=== PATIENT | male | born 1965 | race Caucasian/White ===

== ENCOUNTER → 2016-10-05 | Outpatient (CLI) | payer OTHER ==
[~2016-10-05] MED LIST: ADVIL,NUPRIN,M200 MG PO; ADVIL200 MG PO; AMOX TR-K250 MG/5 M PO; IBUPROFEN200 M1 PO; OXYCODONE H5 MG/5 ML PO; OXYCODONE HCL10 MG PO; VICODIN 5-3001 EACH PO
== END | disposition home or self-care (01) ==
LOC: CDC 11:19
DX: C10.9 Malignant neoplasm of oropharynx, unspecified (principal)
CPT/HCPCS: 93000

== ENCOUNTER 2016-10-06 21:01 | Inpatient (IN) | payer OTHER ==
[~2016-10-06] VITALS: Ht 175.3 cm; Wt 55.7 kg
[~2016-10-06 21:01] MED LIST changes: -ADVIL,NUPRIN,M200 MG PO; -AMOX TR-K250 MG/5 M PO; -OXYCODONE HCL10 MG PO
[2016-10-06 23:44] LABS: EOSINOPHIL (%) 0.2 % (0-5); HEMATOCRIT 40.1 % (38.0-50.0); IMMATURE GRANULOCYTE (%) 0.7 % (0.0-0.7); INSTRUMENT ABS NEUTROPHIL CT 4.9 K/uL; LYMPHOCYTE COUNT 0.4 K/uL (1.0-2.8); MCH 34.2 PG (29.0-34.0); MCHC 36.7 G/DL (30.0-36.0); MCV 93.3 FL (86-99); MEAN PLAT.VOLUME 9.5 uM^3 (9.0-12.4); MONOCYTE (%) 8.1 % (3-12); MONOCYTE COUNT 0.5 K/uL (0-0.8); NEUTROPHIL (%) 83.5 % (45-76); NEUTROPHIL COUNT 4.9 K/uL (1.8-6.4); PLATELET COUNT 224 K/uL (156-360); RBC DIS.WIDTH-CV 13.2 % (11.8-14.6); RBC DIS.WIDTH-SD 45.2 % (39-53); WHITE BLOOD COUNT 5.8 K/uL (4.1-10.2)
[2016-10-06 23:54] LABS: CHLORIDE 97 mEq/L (99-109)
[2016-10-06 23:55] LABS: POTASSIUM 4.2 mEq/L (3.7-5.4)
[2016-10-06 23:56] LABS: INTER. NORMALIZED RATIO 0.9; PTT 28.1 (25-32)
[2016-10-06 23:57] LABS: GLUCOSE 84 mg/dL (70-99)
[2016-10-06 23:58] LABS: ANION GAP 16 MEQ/L (2-14)
[2016-10-06 23:59] LABS: TOTAL BILIRUBIN 0.2 mg/dL (0.0-1.0)
[2016-10-07] LABS: ALKALINE PHOSPHATASE 62 IU/L (3-129); PROTHROMBIN TIME 9.4 (9.2-11.2); SERUM ETHYL ALCOHOL 296 mg/dL
[2016-10-07 00:01] LABS: GFR ESTIMATE (CALCULATED) > 59 mL/min/
[2016-10-07 00:02] LABS: UREA NITROGEN (BUN) 5 mg/dL (9-23)
[2016-10-07 00:04] LABS: LIPASE 23 U/L (1.0-51.0)
[2016-10-07 00:06] LABS: SODIUM 137 mEq/L (136-147)
[2016-10-07] MEDS ORDERED: ADVIL,NUPRIN,M200 MG PO (01:38)
[2016-10-07] MEDS ORDERED: OXYCODONE HCL10 MG PO (01:38)
[2016-10-07 07:46] VITALS: BP 107/69
[2016-10-07 11:14] VITALS: BP 119/71
[2016-10-07 16:20] VITALS: BP 121/76
[2016-10-07 23:43] VITALS: BP 157/83
[2016-10-08 05:41] LABS: ANION GAP 8 MEQ/L (2-14); CHLORIDE 93 MEQ/L (99-109); GFR ESTIMATE (CALCULATED) > 59 mL/min/; GLUCOSE 100 mg/dL (70-99); POTASSIUM 3.9 MEQ/L (3.7-5.4); SAMPLE HEMOLYSIS CHECK 0; SAMPLE ICTERIC CHECK 0; SAMPLE LIPEMIA CHECK 0; SODIUM 132 MEQ/L (136-147); UREA NITROGEN (BUN) 7 mg/dL (9-23)
[2016-10-08 06:20] LABS: EOSINOPHIL (%) 0.4 % (0-5); HEMATOCRIT 34.8 % (38.0-50.0); IMMATURE GRANULOCYTE (%) 0.6 % (0.0-0.7); INSTRUMENT ABS NEUTROPHIL CT 5.7 K/uL; LYMPHOCYTE COUNT 0.4 K/uL (1.0-2.8); MCH 33.2 PG (29.0-34.0); MCHC 35.3 G/DL (30.0-36.0); MCV 94.1 FL (86-99); MEAN PLAT.VOLUME 9.9 uM^3 (9.0-12.4); MONOCYTE (%) 9.9 % (3-12); MONOCYTE COUNT 0.7 K/uL (0-0.8); NEUTROPHIL (%) 83.6 % (45-76); NEUTROPHIL COUNT 5.7 K/uL (1.8-6.4); PLATELET COUNT 189 K/uL (156-360); RBC DIS.WIDTH-CV 13.3 % (11.8-14.6); RBC DIS.WIDTH-SD 45.6 % (39-53); WHITE BLOOD COUNT 6.9 K/uL (4.1-10.2)
[2016-10-08 08:19] VITALS: BP 144/81
[2016-10-08 18:03] VITALS: BP 136/78
[2016-10-08 23:43] VITALS: BP 139/80
[2016-10-09 05:55] LABS: ANION GAP 5 MEQ/L (2-14); CHLORIDE 94 MEQ/L (99-109); GFR ESTIMATE (CALCULATED) > 59 mL/min/; GLUCOSE 101 mg/dL (70-99); POTASSIUM 3.7 MEQ/L (3.7-5.4); SAMPLE HEMOLYSIS CHECK 0; SAMPLE ICTERIC CHECK 0; SAMPLE LIPEMIA CHECK 0; SODIUM 130 MEQ/L (136-147); UREA NITROGEN (BUN) 5 mg/dL (9-23)
[2016-10-09 08:19] VITALS: BP 131/82
[2016-10-09 16:11] VITALS: BP 159/92
[2016-10-09 19:26] VITALS: BP 139/83
[2016-10-10 00:04] VITALS: BP 159/83
[2016-10-10 06:23] VITALS: BP 143/86
[2016-10-10 08:59] LABS: HEMATOCRIT 39.3 % (38.0-50.0); MCH 33.1 PG (29.0-34.0); MCHC 34.9 G/DL (30.0-36.0); MCV 94.9 FL (86-99); MEAN PLAT.VOLUME 9.8 uM^3 (9.0-12.4); PLATELET COUNT 204 K/uL (156-360); RBC DIS.WIDTH-CV 13.2 % (11.8-14.6); RBC DIS.WIDTH-SD 46.1 % (39-53); RED BLOOD COUNT 4.14 M/uL (4.00-5.50); WHITE BLOOD COUNT 7.2 K/uL (4.1-10.2)
[2016-10-10 09:21] LABS: ANION GAP 10 MEQ/L (2-14); CHLORIDE 89 MEQ/L (99-109); GFR ESTIMATE (CALCULATED) > 59 mL/min/; GLUCOSE 119 mg/dL (70-99); POTASSIUM 3.4 MEQ/L (3.7-5.4); SAMPLE HEMOLYSIS CHECK 0; SAMPLE ICTERIC CHECK 0; SAMPLE LIPEMIA CHECK 0; SODIUM 129 MEQ/L (136-147); UREA NITROGEN (BUN) 7 mg/dL (9-23)
[2016-10-10] MEDS ORDERED: AMOX TR-K250 MG/5 M PO (16:20)
[2016-10-10 16:56] VITALS: BP 121/88
== END 2016-10-10 18:39 | disposition home health service (06) | DRG 158 ==
LOC: RME 21:01 → EME 21:01 → 3EAST 10-07 05:51 → EDOF 10-07 05:51 → 3EAST 10-07 07:35
PROVIDERS: Emergency Medicine; Hospitalist; Nurse Practitioner Adult Health; Physician Assistant
PROC: 0DH64UZ Insertion of Feeding Device into Stomach, Percutaneous Endoscopic Approach (ICD-10-PCS; principal; 2016-10-09)
DX: M27.2 Inflammatory conditions of jaws (principal); E44.0 Moderate protein-calorie malnutrition; Z68.1 Body mass index [BMI] 19.9 or less, adult; Z85.828 Personal history of other malignant neoplasm of skin; C78.02 Secondary malignant neoplasm of left lung; C44.42 Squamous cell carcinoma of skin of scalp and neck; Z92.3 Personal history of irradiation; K04.7 Periapical abscess without sinus; M89.8X8 Other specified disorders of bone, other site; F17.210 Nicotine dependence, cigarettes, uncomplicated; C79.51 Secondary malignant neoplasm of bone; G89.3 Neoplasm related pain (acute) (chronic); E86.0 Dehydration; R62.7 Adult failure to thrive; H66.92 Otitis media, unspecified, left ear; F10.229 Alcohol dependence with intoxication, unspecified
CPT/HCPCS: 36415; 70450; 70487; 70553; 71010; 80048; 80053; 81003; 83690; 83735; 85025; 85027; 85610; 85730; 87040; 93000; 99281; 99285; G0480; J0295; J0696; J1170; J1650; J1885; J2704; J3010; J3411; J3475; J7030; J7050; S0030

== ENCOUNTER 2017-07-27 08:25 | Inpatient (IN) | payer OTHER ==
[~2017-07-27] VITALS: Ht 175.3 cm; Wt 48.4 kg
[~2017-07-27 08:25] MED LIST changes: +ADVIL,NUPRIN,M200 MG PO; +AMOX TR-K250 MG/5 M PO; +EXTRA STRENGTH500 M1 PO; +OXYCODONE HCL10 MG PO
[2017-07-27 08:59] LABS: BASE EXCESS 9.1 mEq/L (-3 to +3); BICARBONATE 32.7 mEq/L (22-26); METHEMOGLOBIN 0.8 % (0-1.5); PCO2 40 mm Hg (35-45); PO2 70 mm Hg (80-100); SITE RR; pH 7.52 (7.35-7.45)
[2017-07-27 09:00] LABS: COMMENTS - BLOOD GASES A+C+; DEVICE NRBM; O2 FLOW 15 L/MIN; TOTAL RESP RATE 32 resp/min
[2017-07-27 09:27] LABS: BASOPHIL (%) 0.3 % (0-1); BASOPHIL COUNT 0.1 K/uL (0-0.1); EOSINOPHIL (%) 0 % (0-5); HEMATOCRIT 39.1 % (38.0-50.0); HEMOGLOBIN 13.2 G/DL (12.5-16.6); IMMATURE GRANULOCYTE (%) 0.6 % (0.0-0.7); LYMPHOCYTE (%) 0.3 % (15-42); LYMPHOCYTE COUNT 0.1 K/uL (1.0-2.8); MCH 30.3 PG (29.0-34.0); MCHC 33.8 G/DL (30.0-36.0); MCV 89.7 FL (86-99); MONOCYTE (%) 1.4 % (3-12); MONOCYTE COUNT 0.4 K/uL (0-0.8); NEUTROPHIL (%) 97.4 % (45-76); NEUTROPHIL COUNT 28.1 K/uL (1.8-6.4); PLATELET COUNT 416 K/uL (156-360); RBC DIS.WIDTH-CV 13.7 % (11.8-14.6); RED BLOOD COUNT 4.36 M/uL (4.00-5.50); WHITE BLOOD COUNT 28.9 K/uL (4.1-10.2)
[2017-07-27 09:32] LABS: INTER. NORMALIZED RATIO 1.2
[2017-07-27 09:38] LABS: ALBUMIN 3.2 g/dL (3.2-4.8); CHLORIDE 97 mEq/L (99-109); POTASSIUM 3.9 mEq/L (3.7-5.4); SODIUM 141 mEq/L (136-147)
[2017-07-27 09:47] LABS: ALKALINE PHOSPHATASE 129 IU/L (3-129); ALT (GPT) 25 IU/L (3-49); AST (GOT) 17 IU/L (2-34); CREATININE 0.6 mg/dL (0.6-1.3); GFR ESTIMATE (CALCULATED) > 59 mL/min/ (58.99-99999); GLUCOSE 108 mg/dL (70-99); TOTAL BILIRUBIN 0.8 mg/dL (0.0-1.0); UREA NITROGEN (BUN) 17 mg/dL (9-23)
[2017-07-27 10:06] LABS: PTT 19.6 SEC (25-37); TROP-I INTERPRETATION NEGATIVE; TROPONIN-I < 0.01 ng/mL (0.0-0.30)
[2017-07-27 11:23] LABS: LIPASE < 3 U/L (1.0-51.0)
[2017-07-27] MEDS ORDERED: OXYCODONE HCL10 MG PO (11:50)
[2017-07-27] MEDS ORDERED: PEN-VEE K,VEET500 MG PO (11:50)
[2017-07-27 17:08] VITALS: BP 93/56
[2017-07-27 20:45] VITALS: BP 89/54
[2017-07-27 23:35] VITALS: BP 92/59
[2017-07-28 03:38] VITALS: BP 96/62
[2017-07-28 05:24] LABS: CHLORIDE 102 mEq/L (99-109); SODIUM 139 mEq/L (136-147)
[2017-07-28 05:26] LABS: GLUCOSE 104 mg/dL (70-99)
[2017-07-28 05:30] LABS: CREATININE 0.4 mg/dL (0.6-1.3); GFR ESTIMATE (CALCULATED) > 59 mL/min/ (58.99-99999)
[2017-07-28 05:31] LABS: UREA NITROGEN (BUN) 15 mg/dL (9-23)
[2017-07-28 06:28] LABS: HEMATOCRIT 29.6 % (38.0-50.0); MCH 30.5 PG (29.0-34.0); MCHC 34.5 G/DL (30.0-36.0); MCV 88.6 FL (86-99); RBC DIS.WIDTH-CV 13.7 % (11.8-14.6); RBC DIS.WIDTH-SD 44.3 % (39-53); WHITE BLOOD COUNT 22.5 K/uL (4.1-10.2)
[2017-07-28 06:47] LABS: HEMOGLOBIN 10.2 G/DL (12.5-16.6); RED BLOOD COUNT 3.34 M/uL (4.00-5.50)
[2017-07-28 06:57] LABS: BASOPHIL (%) 0.1 % (0-1); EOSINOPHIL (%) 0 % (0-5); IMMATURE GRANULOCYTE (%) 1.1 % (0.0-0.7); LYMPHOCYTE (%) 0.7 % (15-42); LYMPHOCYTE COUNT 0.2 K/uL (1.0-2.8); MONOCYTE (%) 1.1 % (3-12); MONOCYTE COUNT 0.2 K/uL (0-0.8); NEUTROPHIL COUNT 21.8 K/uL (1.8-6.4); PLATELET COUNT UNABLE TO REPORT K/uL (156-360)
[2017-07-28 08:30] VITALS: BP 107/61
[2017-07-28 12:11] VITALS: BP 95/61
[2017-07-28 16:40] VITALS: BP 104/65
[2017-07-28 20:41] VITALS: BP 107/64
[2017-07-28 23:56] VITALS: BP 109/6; BP 109/65
[2017-07-29 04:44] VITALS: BP 111/74
[2017-07-29 05:28] LABS: BASOPHIL (%) 0.1 % (0-1); EOSINOPHIL (%) 0.1 % (0-5); HEMATOCRIT 29.4 % (38.0-50.0); HEMOGLOBIN 10.1 G/DL (12.5-16.6); IMMATURE GRANULOCYTE (%) 0.9 % (0.0-0.7); LYMPHOCYTE COUNT 0.2 K/uL (1.0-2.8); MCHC 34.4 G/DL (30.0-36.0); MCV 87.2 FL (86-99); MONOCYTE (%) 1.4 % (3-12); MONOCYTE COUNT 0.3 K/uL (0-0.8); NEUTROPHIL (%) 96.5 % (45-76); NEUTROPHIL COUNT 18.6 K/uL (1.8-6.4); PLATELET COUNT 348 K/uL (156-360); RBC DIS.WIDTH-CV 13.7 % (11.8-14.6); RBC DIS.WIDTH-SD 43.7 % (39-53); RED BLOOD COUNT 3.37 M/uL (4.00-5.50); WHITE BLOOD COUNT 19.2 K/uL (4.1-10.2)
[2017-07-29 05:52] LABS: CHLORIDE 101 MEQ/L (99-109); CREATININE 0.2 MG/DL (0.6-1.3); GFR ESTIMATE (CALCULATED) > 59 mL/min/ (58.99-99999); GLUCOSE 108 mg/dL (70-99); POTASSIUM 2.7 MEQ/L (3.7-5.4); SODIUM 137 MEQ/L (136-147); UREA NITROGEN (BUN) 11 mg/dL (9-23)
[2017-07-29 07:47] VITALS: BP 123/80
[2017-07-29 11:51] VITALS: BP 124/80
[2017-07-29 20:27] VITALS: BP 126/59
== END 2017-07-29 23:47 | DRG 871 ==
LOC: EME 08:25 → CANRESERV 11:36 → ENRESERV 11:36 → 4EAST 11:37 → EDOF 11:37 → ENRESERV 11:38 → 4EAST 16:09
PROVIDERS: Emergency Medicine; Hospitalist; Internal Medicine
DX: A41.9 Sepsis, unspecified organism (principal); J69.0 Pneumonitis due to inhalation of food and vomit; J96.01 Acute respiratory failure with hypoxia; C79.51 Secondary malignant neoplasm of bone; C14.0 Malignant neoplasm of pharynx, unspecified; C34.90 Malignant neoplasm of unspecified part of unspecified bronchus or lung; Z66 Do not resuscitate; Z51.5 Encounter for palliative care; C76.0 Malignant neoplasm of head, face and neck; F17.200 Nicotine dependence, unspecified, uncomplicated; J44.9 Chronic obstructive pulmonary disease, unspecified; F43.20 Adjustment disorder, unspecified; F10.20 Alcohol dependence, uncomplicated; Z68.1 Body mass index [BMI] 19.9 or less, adult
CPT/HCPCS: 36600; 71045; 71275; 80048; 80053; 80202; 81003; 82803; 83605; 83690; 84484; 85025; 85610; 85730; 87040; 87070; 87205; 87449; 93005; 94640; 94640 76; 94799; 99202; 99281; 99285; J0456; J1650; J2060; J2543; J3370; J7030; J7050